=== PATIENT | male | born 1955 | race Caucasian/White ===

== ENCOUNTER 2022-12-08 00:58 | Day surgery (SDC) | payer MEDICARE, SELFPAY ==
[2022-11-19 14:15] VITALS: BMI 30.6
--- NOTE | 2022-12-02 10:59 | PC.NURSE ---
PT WAS CANCELLED FOR COLONOSCOPY ON 12/02/2022 DUE TO EATING BREAKFAST AND SUPPER THE DAY OF HIS PREP. HE ALSO DID NOT FOLLOW THE CORRECT INSTRUCTIONS FOR HIS SUPREP, I RESCHED. HIS PROCEDURE AND WENT OVER HIS INSTRUCTIONS WITH HIM.
--- NOTE | 2022-12-05 09:55 | PC.NURSE ---
I called this patient this morning to go over instructions once more for Thursday. Reviewed times with patient and answered all questions.
[2022-12-08 09:45] VITALS: BP 178/76; PULSE 65; RESP 18; TEMP 36.5; O2SAT 98; BMI 29.0
--- NOTE | 2022-12-08 09:56 | WPDANESEPPF ---
Anes - Initial Pre Proc Eval Procedure: Operation Date: 12/08/22 10:45 Proposed Procedures p Screening Colonoscopy - Josue Naik MD Date/Time: 12/08/22 09:56 Surgeon: Josue Naik MD Pre Op Diagnosis: neoplasm screening Patient Data Age: 67 Gender: M Height: 1.83 m Weight: 97.2 kg Last Vital Signs Temp 97.7 F 12/08/22 09:45 Pulse 65 12/08/22 09:45 Resp 18 12/08/22 09:45 BP 178/76 H 12/08/22 09:45 Pulse Ox 98 12/08/22 09:45 O2 Del Method Room Air 12/08/22 09:45 Allergies Allergy/AdvReac Type Severity Reaction Status Date / Time No Known Allergies Allergy Verified 12/08/22 09:36 Home Medications Medication Instructions Recorded Confirmed Type aspirin 81 mg tablet 81 mg PO DAILY 11/19/22 11/19/22 History atorvastatin 10 mg tablet 10 mg PO DAILY 11/19/22 11/19/22 History losartan 100 mg tablet 100 mg PO DAILY 11/19/22 11/19/22 History Patient hx anesthesia problems: none Family hx anesthesia problems: none Results Review: All pre-operative results and documents have been reviewed as part of the pre-operative evaluation. [facility] Social History Social History Smoking status: Never smoker Alcohol intake: current Drinks per week: 6 Alcohol use details: beer Substance use: current Substance use type: marijuana Last use: daily Living arrangements: alone Spiritual care concerns: No Anes - Eval Final PreProcedure Day of Procedure 12/08/22 09:56 Patient weight: overweight Heart: regular rate and rhythm Lungs: clear to auscultation Airway: Mallampati scale class II Neurological: alert and oriented Last oral intake: >/= 8 hours ASA classification: III Emergent: no Anesthetic plan: proceed Anesthesia type and monitoring: general GIVS and standard monitoring Results Review: All pre-operative results and documents have been reviewed as part of the pre-operative evaluation. Informed Consent: The patient's anesthetic plan and its attendant risks and benefits were discussed with the patient/family/POA. Questions were solicited and answers provided to the satisfaction of the patient/family/POA.
--- NOTE | 2022-12-08 10:00 | P.HP_ITS ---
History of Present Illness History of Present Illness Consent: Risks, benefits, and alternatives have been discussed and questions answered. Patient agrees to proceed with procedure. Chief complaint: neoplasm screening Narrative: Inder Kaur is a 67 year old male Presents for screening colonoscopy. Patient's current weight appetite and bowel movements are normal. Patient denies abdominal pain. He has had no bleeding. Family history noncontributory. Patient's past medical history is significant for his CVA 7 or 8 years ago that left him with some left-sided left upper arm weakness. Review of Systems Review of Systems: Review of systems noncontributory. [facility] Social History Social History Smoking status: Never smoker Alcohol intake: current Drinks per week: 6 Alcohol use details: beer Substance use: current Substance use type: marijuana Last use: daily Living arrangements: alone Spiritual care concerns: No Meds Home Medications and Allergies Home Medications Medication Instructions Recorded Confirmed Type aspirin 81 mg tablet 81 mg PO DAILY 11/19/22 11/19/22 History atorvastatin 10 mg tablet 10 mg PO DAILY 11/19/22 11/19/22 History losartan 100 mg tablet 100 mg PO DAILY 11/19/22 11/19/22 History Allergies Allergy/AdvReac Type Severity Reaction Status Date / Time No Known Allergies Allergy Verified 12/08/22 09:36 Vital Signs Vital Signs - 24 hr 12/08/22 09:45 Temperature 97.7 F Pulse Rate 65 Respiratory Rate 18 Blood Pressure 178/76 H Pulse Oximetry 98 Oxygen Delivery Room Air Exam Narrative: Physical exam reveals patient to be alert. Vital signs stable. HEENT exam is unremarkable. Patient is anicteric. Lungs are clear to auscultation and percussion. Heart is without murmur or extra sounds. Abdomen bowel sounds present soft nontender with no organomegaly. Patient does have significant left-sided weakness predominantly flaccid left arm and weakness in left leg. Digital external rectal exam is normal. Assessment and Plan Assessment and plan (1) Encounter for screening colonoscopy: Code(s): Z12.11 - Encounter for screening for malignant neoplasm of colon Status: Acute Assessment and Plan: Patient presents today for screening colonoscopy. He appears to be at average risk for colon polyps. Further recommendations will be given after endoscopy.
[2022-12-08] MEDS: LACTATED RINGERS 1,000 ML 150 ML IV CONT (10:01)
[2022-12-08 10:21] VITALS: BP 148/75; PULSE 63; O2SAT 100
[2022-12-08 10:31] VITALS: BP 137/89; PULSE 67; O2SAT 94
[2022-12-08 10:41] VITALS: BP 140/91; PULSE 69; O2SAT 97
== END 2022-12-08 10:44 | disposition home or self-care (01) ==
PROVIDERS: PCP Family Medicine; Visit Provider Internal Medicine Gastroenterology
PROC: 0DJD8ZZ Inspection of Lower Intestinal Tract, Via Natural or Artificial Opening Endoscopic (ICD-10-PCS; CPT 45378; principal; 2022-12-08 10:45)
DX: Z12.11 Encounter for screening for malignant neoplasm of colon (principal); K64.8 Other hemorrhoids; F12.90 Cannabis use, unspecified, uncomplicated; I69.354 Hemiplegia and hemiparesis following cerebral infarction affecting left non-dominant side; Z79.82 Long term (current) use of aspirin
CPT/HCPCS: G0121; J2704; J7120

== ENCOUNTER 2024-03-14 19:52 | Emergency (ER) | payer OTHER, SELFPAY ==
[2024-03-14 20:00] VITALS: BP 162/59; PULSE 87; RESP 14; TEMP 37.1; O2SAT 100
[2024-03-14 20:11] VITALS: O2SAT 99
--- NOTE | 2024-03-14 20:12 | ECG_ITS ---
Test Date: 2024-03-14 20:19:06 Measurements Intervals [place] Rate: 88 P: 72 KS: 141 QRS: 55 QRSD: 90 T: 63 QT: 381 QTc: 462 Interpretive Statements SINUS RHYTHM WITH OCCASIONAL VENTRICULAR PREMATURE COMPLEXES POSSIBLE LEFT ATRIAL ENLARGEMENT [-0.1mV P WAVE IN V1/V2] INCOMPLETE RIGHT BUNDLE BRANCH BLOCK NONSPECIFIC ST & T-WAVE ABNORMALITY No previous ECG available for comparison Electronically Signed On 03-15-2024 08:52:57 CDT by Samaria Montalvo M.D.
[2024-03-14 20:31] VITALS: BP 163/67; PULSE 87; RESP 19; O2SAT 98
--- NOTE | 2024-03-14 20:34 | ED.SYNCOPE ---
HPI - Syncope General Chief Complaint: Syncope Stated Complaint: SYNCOPAL EPISODE, MED NONCOMPLIANCE Time Seen by Provider: 03/14/24 20:06 History of Present Illness HPI narrative: This is a 68-year-old male with a past medical history significant for hypertension and some chronic kidney disease. Today patient presents to the emergency department after a syncopal event. Patient was recently discharged from outside facility for acute dehydration secondary to a diarrheal illness. He was started on new antihypertensive medications including hydralazine 100 mg t.i.d.. He was previously on only 10 mg of amlodipine for his blood pressure. Patient misunderstood the prescription and took 300 mg of hydralazine all at once instead of 3 times a day as directed. This was in combination with his amlodipine 10 that he took prior. Patient was feeling weak and had a syncopal event after he called his neighbor. EMS arrived and provide assistance, patient was becoming more awake and able to answer questions as presently as baseline mentation. He did not fall or hit his head. He is not on any blood thinner medications to his knowledge. Presently patient states that he has no headache, vision changes, chest pain, shortness a breath, fever, chills. Patient has a history of a stroke with left-sided residual upper extremity weakness. Has never had anything like this happened in the past. Endorses that he was not trying to harm himself or take too many medications intentionally. Was otherwise in his normal state of health yesterday. Related Data Home Medications Medication Instructions Recorded Confirmed aspirin 81 mg tablet 81 mg PO DAILY 11/19/22 11/19/22 atorvastatin 10 mg tablet 10 mg PO DAILY 11/19/22 11/19/22 losartan 100 mg tablet 100 mg PO DAILY 11/19/22 11/19/22 Allergies Allergy/AdvReac Type Severity Reaction Status Date / Time No Known Allergies Allergy Verified 12/08/22 09:36 Review of Systems Review of Systems: As reviewed above in the HPI [facility] Social History Social History Smoking status: Never smoker Alcohol intake: current Drinks per week: 6 Alcohol use details: beer Substance use: current Substance use type: marijuana Last use: daily Living arrangements: alone Spiritual care concerns: No Exam Narrative: GENERAL: [Well-appearing, well-nourished, and in no acute distress.] HEAD: [Normocephalic, atraumatic.] EYES: [PERRLA and EOMI.] ENT: Nares clear, no rhinorrhea or epistaxis. Mucous membranes moist. NECK: Supple. CHEST: [Clear to auscultation. No respiratory distress.] HEART: [Regular rate and rhythm]. No murmur heard. [Normal peripheral pulses.] 2+ peripheral pulses. ABDOMEN: [Soft, nondistended], [nontender], [No rigidity or guarding] EXTREMITIES: Normal range of motion. [No edema.] SKIN: Warm, dry, no rash. NEURO: Left upper extremity weakness which is chronic, for range of motion of the right arm, bilateral lower extremities. Awake alert oriented answers all questions appropriately. PSYCH: [Normal mood and affect.] Course Vital Signs Vital signs: Vital Signs Temperature 37.1 C 03/14/24 20:00 Pulse Rate 87 03/14/24 20:00 Respiratory Rate 14 03/14/24 20:00 Blood Pressure 162/59 H 03/14/24 20:00 Pulse Oximetry 100 03/14/24 20:00 Oxygen Delivery Room Air 03/14/24 20:00 Temperature 37.1 C 03/14/24 20:00 Pulse Rate 87 03/14/24 20:00 Respiratory Rate 14 03/14/24 20:00 Blood Pressure 162/59 H 03/14/24 20:00 Pulse Oximetry 99 03/14/24 20:11 Oxygen Delivery Room Air 03/14/24 20:11 MDM - Syncope MDM Narrative Medical decision making narrative: This is a 68-year-old gentleman who presents after a syncopal episode after taking too many of his hydralazine at home. Patient was recently hospitalized for diarrheal illness or causing acute kidney injury and dehydration last week
[2024-03-14] MEDS: LACTATED RINGERS 1,000 ML 999 ML IV CONT (20:42)
[2024-03-14 21:43] LABS: Basophils Absolute Auto 0.1 K/mm3 (0.0-0.1); Basophils Percent Auto 0.4 % (0.2-1.2); Eosinophils Absolute Auto 0.1 K/mm3 (0-0.3); Eosinophils Percent Auto 0.9 % (0-4.4); Hemoglobin 14.7 g/dL (14.0-18.0); Immature Granulocyte Absolute 0.06 K/mm3 (0.00-0.031); Immature Granulocyte Percent A 0.4 % (0-0.5); Lymphocytes Absolute Auto 1.26 K/mm3 (0.9-3.2); Lymphocytes Percent Auto 7.8 % (18.3-44.2); Mean Corpuscular Hemoglobin 29.5 pg (26-34); Mean Corpuscular Volume 84.3 fl (80-100); Mean Platelet Volume 11.4 fl (7.4-10.4); Monocytes Absolute Auto 0.7 K/mm3 (0.1-0.6); Monocytes Percent Auto 4.4 % (2.6-8.5); Neutrophils Percent Auto 86.1 % (45.5-73.1); Platelet Count Result 222 k/mm3 (150-375); Red Blood Count 4.98 M/mm3 (4.6-6.20); Red Cell Distribution Width 12.9 % (11.5-14.5); White Blood Count 16.2 K/mm3 (4.5-10.0)
[2024-03-14 21:52] LABS: Anion Gap 13 mmol/L (4-12); Blood Urea Nitrogen 18 mg/dL (9-20); Calcium 9.2 mg/dL (8.4-10.2); Carbon Dioxide 22 mmol/L (22-30); Chloride 101 mmol/L (98-107); Estimated CRCL calculation 58 ml/min; Estimated Glomerular Filt Rate 50; Glucose 120 mg/dL (65-110); Potassium 3.4 mmol/L (3.4-5.0); Sodium 136 mmol/L (137-145)
[2024-03-14 22:00] VITALS: PULSE 99; RESP 18; O2SAT 99
[2024-03-14 22:33] VITALS: BP 161/69; PULSE 97; RESP 17; TEMP 36.9; O2SAT 98
== END 2024-03-14 22:34 | disposition home or self-care (01) ==
PROVIDERS: Emergency Provider Student in an Organized Health Care Education/Training Program; PCP Family Medicine
DX: T46.5X Poisoning by, adverse effect of and underdosing of other antihypertensive drugs (principal); R55 Syncope and collapse; I12.9 Hypertensive chronic kidney disease with stage 1 through stage 4 chronic kidney disease, or unspecified chronic kidney disease; N18.9 Chronic kidney disease, unspecified
CPT/HCPCS: 36415; 80048; 85025; 93005; 96360; 99283; J7120